=== PATIENT | female | born 1995 | race African-American/Black ===

== ENCOUNTER 2022-04-17 10:18 | Outpatient (CLI) | payer OTHER | END 2022-04-17 10:19 | disposition home or self-care (01) | LOC: CSHULT 10:18 | PROVIDERS: ATTEND Family Medicine | DX: O09.893 Supervision of other high risk pregnancies, third trimester (principal); Z3A.32 32 weeks gestation of pregnancy | CPT/HCPCS: 76805 ==

== ENCOUNTER 2022-04-30 15:59 | Day surgery (SDC) | payer OTHER ==
[2022-04-30 16:17] VITALS: BMI 32.9
[2022-04-30] MEDS ORDERED: hydrALAZINE 20 MG/ML VIAL SLOW IVP PRN (16:54)
[2022-04-30 17:34] LABS: Bilirubin Neg (Negative); Blood, Urine Negative (Negative); Clarity Clear (Clear); Glucose, Urine (Dipstick) Normal (Negative); Ketone, Urine Negative (Negative); Leukocyte 25 (Negative); Nitrite Negative (Negative); Protein, Urine (Dipstick) 15 mg/dl (Neg-Trace); Urobilinogen Normal mg/dL (Less than 2)
[2022-04-30 17:44] LABS: Bacteria/HPF None Seen HPF (None Seen); RBC/HPF None Seen HPF (0-3); Squamous Epithelial 0-3 HPF (0-3); WBC/HPF 0-3 HPF (0-3)
== END 2022-04-30 18:25 | disposition home or self-care (01) ==
LOC: CSHLD/OP 15:59 → EDSTATUS 16:00 → CSHLD/OP 18:25
PROVIDERS: ATTEND Family Medicine
DX: O47.03 False labor before 37 completed weeks of gestation, third trimester (principal); Z3A.34 34 weeks gestation of pregnancy
CPT/HCPCS: 81003; 81015

== ENCOUNTER 2022-05-11 16:24 | Day surgery (SDC) | payer OTHER ==
[2022-05-11] MEDS ORDERED: hydrALAZINE 20 MG/ML VIAL SLOW IVP PRN (18:17)
[2022-05-11] MEDS ORDERED: Lactated Ringer's 1,000 ML IV SCH (18:30)
== END 2022-05-11 20:04 | disposition home or self-care (01) ==
LOC: CSHLD/OP 16:24
PROVIDERS: ATTEND Family Medicine
DX: O47.03 False labor before 37 completed weeks of gestation, third trimester (principal); O99.013 Anemia complicating pregnancy, third trimester; D64.9 Anemia, unspecified; Z79.899 Other long term (current) drug therapy; Z3A.35 35 weeks gestation of pregnancy
CPT/HCPCS: 96360; 99282

== ENCOUNTER 2022-05-14 09:48 | Inpatient (IN) | payer OTHER ==
[2022-05-11 12:25] LABS: Hemoglobin 9.4 g/dL (12.0-15.5); Platelet Count 208 10x3/uL (150-450)
[2022-05-11 12:42] LABS: SARS-CoV-2 NAA Rapid Test Not Detected (NotDetected)
[2022-05-11 12:44] LABS: HBSAg Index 0.15 S/CO (0-0.99); Hep B Surf Ag Non-Reactive S/CO (NonReactive)
[2022-05-11 12:46] LABS: Syphilis Antibody Nonreactive (Nonreactive); Syphilis Antibody Index 0.05 S/CO (<1.00 Non-Reactive)
[2022-05-14] MEDS ORDERED: Ondansetron PF 4 MG/2 ML Vial IVP PRN ×2 (10:15→13:36)
[2022-05-14] MEDS ORDERED: Bicitra 30 ML UDCUP PO PRN (10:15)
[2022-05-14] MEDS ORDERED: hydrALAZINE 20 MG/ML VIAL SLOW IVP PRN ×2 (10:15→15:17)
[2022-05-14] MEDS ORDERED: Famotidine/PF 20 mg/2ml Vial SLOW IVP PRN (10:15)
[2022-05-14] MEDS ORDERED: Carboprost 250 MCG/ML AMP IM PRN (10:15)
[2022-05-14] MEDS ORDERED: Lactated Ringer's 1,000 ML IV SCH (10:15)
[2022-05-14] MEDS ORDERED: NS w/ Oxytocin 30 units 500 ML IV SCH ×2 (10:15→15:17)
[2022-05-14] MEDS ORDERED: Misoprostol 200 MCG TAB PR PRN (10:15)
[2022-05-14] MEDS ORDERED: Acetaminophen 500 MG TAB PO PRN (10:15)
[2022-05-14] MEDS ORDERED: Diphenoxylate HCl/Atropine Tablet PO PRN (10:15)
[2022-05-14] MEDS ORDERED: CEFAZOLIN 2 GM in Sodium Chloride 0.9% 100 ML IVPB SCH (10:15)
[2022-05-14] MEDS ORDERED: Butorphanol Tartrate 1 MG/ML VIAL SLOW IVP PRN (10:15)
[2022-05-14] MEDS ORDERED: Methylergonovine 0.2 MG/ML VIAL IM PRN (10:15)
[2022-05-14] MEDS ORDERED: Tranexamic Acid 1,000 MG in Sodium Chloride 0.9% 250 ML 250 ML IVPB PRN (10:15)
[2022-05-14] MEDS ORDERED: Promethazine HCl 25 MG/ML VIAL IM PRN ×3 (10:15→15:17)
[2022-05-14 10:18] VITALS: BMI 32.4
[2022-05-14] MEDS ORDERED: Ondansetron PF 4 MG/2 ML Vial ONE (12:17)
[2022-05-14] MEDS ORDERED: Morphine PF 10 MG/10 ML VIAL ONE (12:17)
[2022-05-14] MEDS ORDERED: Fentanyl 100 MCG/2 ML VIAL ONE (12:17)
[2022-05-14] MEDS ORDERED: Oxytocin 10 UNITS/ML VIAL ONE ×2 (12:17→13:21)
[2022-05-14] MEDS ORDERED: Dexamethasone 4 mg/ml Vial ONE (12:17)
[2022-05-14] MEDS ORDERED: Ondansetron HCl/PF 4 MG/2 ML Vial IVP PRN (13:36)
[2022-05-14] MEDS ORDERED: Moisturizing Cream (Eucerin) 113 GM JAR TOP PRN (13:36)
[2022-05-14] MEDS ORDERED: Ketorolac Tromethamine 30 MG/ML VIAL IVP PRN (13:36)
[2022-05-14] MEDS ORDERED: Promethazine HCl 25 MG SUPP PR PRN (13:36)
[2022-05-14] MEDS ORDERED: diphenhydrAMINE 50 MG/ML VIAL IVP PRN (13:36)
[2022-05-14] MEDS ORDERED: Meperidine HCl/PF 25 MG/ML VIAL SLOW IVP PRN (13:36)
[2022-05-14] MEDS ORDERED: Naloxone HCl 0.4 mg/ml Vial IV PRN (13:36)
[2022-05-14] MEDS ORDERED: Fentanyl 100 MCG/2 ML VIAL SLOW IVP PRN (13:36)
[2022-05-14] MEDS ORDERED: HYDROmorphone 2 MG/ML VIAL SLOW IVP PRN (13:36)
[2022-05-14] MEDS ORDERED: Naloxone HCl 0.4 mg/ml Vial IVP PRN ×2 (13:36)
[2022-05-14] MEDS ORDERED: Communication Order-Pharmacy FS SCH (13:45)
[2022-05-14] MEDS ORDERED: Ketorolac Tromethamine 30 MG/ML VIAL IVP SCH ×2 (13:45→21:00)
[2022-05-14] MEDS ORDERED: Simethicone Chewable 80 MG TAB PO PRN (15:17)
[2022-05-14] MEDS ORDERED: Boostrix 0.5 ML (Tdap) VIAL (>/=7 yrs of age) IM ONE (15:17)
[2022-05-14] MEDS ORDERED: Bisacodyl 10 MG SUPP PR PRN (15:17)
[2022-05-14] MEDS: Ondansetron PF 4 MG/2 ML Vial IVP PRN ×2 (15:48→21:05)
[2022-05-14] MEDS: Ketorolac Tromethamine 30 MG/ML VIAL IVP SCH (18:27)
[2022-05-15] MEDS: Ferrous Sulfate 325 MG TAB PO SCH ×3 (00:20→21:25)
[2022-05-15] MEDS: Docusate 100 MG CAP PO SCH ×3 (00:20→21:25)
[2022-05-15] MEDS: Ketorolac Tromethamine 30 MG/ML VIAL IVP SCH ×2 (00:21→05:48)
[2022-05-15] MEDS ORDERED: HYDROcodone/Acetaminophen 5/325 mg Tablet PO PRN (01:45)
[2022-05-15] MEDS ORDERED: Meperidine HCl/PF 25 MG/ML VIAL IM PRN (01:45)
[2022-05-15 04:48] LABS: Hemoglobin 9.8 g/dL (12.0-15.5); Mean Corpuscular Hemoglobin 32.2 pg (27.0-33.0); Mean Corpuscular Volume 92.1 fl (81.6-98.3); Mean Platelet Volume 11.3 fl (7.4-10.4); Platelet Count 207 10x3/uL (150-450); RBC Distribution Width 12.9 % (11.5-14.5); Red Blood Cell (RBC) Count 3.04 10x6/uL (3.90-5.03); White Blood Cell (WBC) Count 13.2 10x3/uL (3.5-10.5)
[2022-05-15] MEDS: diphenhydrAMINE 25 MG CAP PO PRN ×2 (05:51→11:46)
[2022-05-15] MEDS: Prenatal Vitamin 1 TAB PO SCH (08:19)
[2022-05-15] MEDS: HYDROcodone/Acetaminophen 5/325 mg Tablet PO PRN ×2 (08:19→18:07)
[2022-05-15] MEDS: Ibuprofen 800 MG TAB PO SCH ×2 (13:03→21:25)
[2022-05-16] MEDS: HYDROcodone/Acetaminophen 5/325 mg Tablet PO PRN ×2 (05:17→18:37)
[2022-05-16] MEDS: Ibuprofen 800 MG TAB PO SCH ×3 (05:18→21:49)
[2022-05-16] MEDS: Docusate 100 MG CAP PO SCH ×2 (09:42→21:49)
[2022-05-16] MEDS: Ferrous Sulfate 325 MG TAB PO SCH ×2 (09:42→21:49)
[2022-05-16] MEDS: Prenatal Vitamin 1 TAB PO SCH (09:42)
[2022-05-17] MEDS: HYDROcodone/Acetaminophen 5/325 mg Tablet PO PRN ×2 (02:53→08:26)
[2022-05-17] MEDS: Ibuprofen 800 MG TAB PO SCH (05:06)
[2022-05-17 07:45] VITALS: BP 114/68; TEMP 98.3
[2022-05-17] MEDS: Docusate 100 MG CAP PO SCH (08:26)
[2022-05-17] MEDS: Prenatal Vitamin 1 TAB PO SCH (08:26)
[2022-05-17] MEDS: Ferrous Sulfate 325 MG TAB PO SCH (08:27)
== END 2022-05-17 12:55 | disposition home or self-care (01) | DRG 788 ==
LOC: CSHLD 09:48 → CSHPP 15:15
PROVIDERS: ADMIT Family Medicine; ATTEND Family Medicine
PROC: 10D00Z1 Extraction of Products of Conception, Low, Open Approach (ICD-10-PCS; principal; 2022-05-14)
PROC: 3E0P05Z Introduction of Adhesion Barrier into Female Reproductive, Open Approach (ICD-10-PCS; 2022-05-14)
DX: O34.212 Maternal care for vertical scar from previous cesarean delivery (principal); Z3A.36 36 weeks gestation of pregnancy; Z37.0 Single live birth; Z20.822 Contact with and (suspected) exposure to COVID-19; Z79.899 Other long term (current) drug therapy
CPT/HCPCS: 36415; 51702; 85014; 85018; 85027; 85049; 86780; 86850; 86900; 86901; 87340; J1100; J1200; J1885; J2274; J2405; J2590; J3010; J3490; J7120; S0028; U0002